=== PATIENT | male | born 2000 | race Caucasian/White ===

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

== ENCOUNTER 2022-04-19 11:24 | Emergency (ER) | payer MEDICAID, OTHER ==
[~2022-04-19] VITALS: Ht 177.8 cm; Wt 88.0 kg
[2022-04-19 11:28] VITALS: BP 109/67
--- NOTE | 2022-04-19 11:34 | NUR ---
22/m C/O LEFT KNEE PAIN ONSET 1 DAY AFTER PLAYING SOCCER. DENIES TRAUMA OR FALL. AAO4, AMBULATORY, NO BRUISING OR DEFORMITY NOTED. STATES PAIN DECREASED WITH IBUPROFEN. NKA PMH:DENIES
--- NOTE | 2022-04-19 11:47 | NUR ---
XR AT BEDSIDE
--- NOTE | 2022-04-19 12:48 | NUR ---
Patient discharged with v/s stable. Written and verbal after care instructions ABOUT ACUTE KNEE PAIN given and explained. Patient verbalized understanding. Ambulatory with steady gait. All questions addressed prior to discharge. Advised to follow up with PMD.
== END 2022-04-19 12:48 | disposition home or self-care (01) ==
LOC: MED 11:24
DX: M25.562 Pain in left knee (principal)
CPT/HCPCS: 73562; 99283; Q0092

== ENCOUNTER 2022-06-06 14:15 | Emergency (ER) | payer OTHER ==
[~2022-06-06] VITALS: Ht 175.3 cm; Wt 81.6 kg
[2022-06-06 14:37] VITALS: BP 107/65
--- NOTE | 2022-06-06 14:40 | NUR ---
PT AMBULATED TO BED 12
--- NOTE | 2022-06-06 14:40 | NUR ---
PT AMBULATED TO LOBBY
--- NOTE | 2022-06-06 14:41 | NUR ---
Patient ambulated with steady gait to bed 6.
--- NOTE | 2022-06-06 14:42 | NUR ---
COVID AND FLU SWAB COLLECTED
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
--- NOTE | 2022-06-06 14:56 | NUR ---
MATHIEU GONSALEZ AT BEDSIDE FOR EVALUATION
[2022-06-06] MEDS ORDERED: PROM118S5 PO (15:48)
[2022-06-06] MEDS ORDERED: IBUP-2213 PO (15:48)
--- NOTE | 2022-06-06 15:53 | NUR ---
Patient discharged with v/s stable. Written and verbal after care instructions FOR ACUTE BRONCHITIS given and explained. Patient alert, oriented and verbalized understanding of instructions. Ambulatory with steady gait. All questions addressed prior to discharge. ID band removed. Patient advised to follow up with PMD. Rx of IBUPROFEN AND PROMETHAZINE given. Opportunity to ask questions provided and answered.
== END 2022-06-06 15:53 | disposition home or self-care (01) ==
LOC: MED 14:15
DX: J20.9 Acute bronchitis, unspecified (principal); Z20.822 Contact with and (suspected) exposure to COVID-19
CPT/HCPCS: 71045; 99284

== ENCOUNTER 2022-07-01 09:51 | Emergency (ER) | payer OTHER ==
[~2022-07-01] VITALS: Ht 175.3 cm; Wt 90.7 kg
[~2022-07-01 09:51] MED LIST: IBUP-2213 PO; PROM118S5 PO
--- NOTE | 2022-07-01 10:12 | NUR ---
22 y/o male bib self, c/o chronic cough for 6-7 weeks, pt states he was seen here previously and was dx with bronchitis. pt was given rx of cough medication with no relief. states he was given rx of antibiotics from pcp from f/u with also no relief. states he wants an xray to see if his chest is getting worse. pmh: bronchitis nka med: antibiotics rx by pcp, cough medication rx by er
--- NOTE | 2022-07-01 10:12 | NUR ---
flu and covid swabbed at this time
[2022-07-01 10:14] VITALS: BP 110/58
--- NOTE | 2022-07-01 10:21 | NUR ---
PT AMBULATED TO BED 12
[2022-07-01] MEDS ORDERED: PROM118S5 PO (12:13)
[2022-07-01] MEDS ORDERED: ALBU0.0912 IH (12:13)
--- NOTE | 2022-07-01 12:31 | NUR ---
Patient discharged with v/s stable. Written and verbal after care instructions given and explained. Patient alert, oriented and verbalized understanding of instructions. Ambulatory with steady gait. All questions addressed prior to discharge. ID band removed. Patient advised to follow up with PMD. Rx of promethazine, albuterol (sent) given. Patient educated on indication of medication including possible reaction and side effects. Opportunity to ask questions provided and answered. copy of labs given
[2022-07-01 12:32] VITALS: BP 110/58
== END 2022-07-01 12:31 | disposition home or self-care (01) ==
LOC: MED 09:51
DX: R05.9 Cough, unspecified (principal); Z20.822 Contact with and (suspected) exposure to COVID-19
CPT/HCPCS: 99283

== ENCOUNTER 2022-11-27 14:30 | Emergency (ER) | payer OTHER ==
[~2022-11-27] VITALS: Ht 177.8 cm; Wt 68.0 kg
[~2022-11-27 14:30] MED LIST changes: +ALBU0.0912 IH
[2022-11-27 14:52] VITALS: BP 111/55
--- NOTE | 2022-11-27 14:59 | NUR ---
pt ambulatory to [facility] w steady gait.
--- NOTE | 2022-11-27 15:14 | NUR ---
Patient ambulated to bed 7.
--- NOTE | 2022-11-27 15:57 | NUR ---
Patient discharged with v/s stable. Written and verbal after care instructions given. Patient verbalized understanding. Ambulatory with steady gait. All questions addressed prior to discharge. Advised to follow up with PMD.
== END 2022-11-27 15:57 | disposition home or self-care (01) ==
LOC: MED 14:30
DX: K62.5 Hemorrhage of anus and rectum (principal); Z79.899 Other long term (current) drug therapy
CPT/HCPCS: 99281

== ENCOUNTER 2023-01-12 15:43 | Emergency (ER) | payer OTHER ==
[~2023-01-12] VITALS: Ht 177.8 cm; Wt 88.5 kg
[2023-01-12 17:08] VITALS: BP 121/79; PULSE 65; RESP 20; TEMP 98.9; O2SAT 96
[2023-01-12] MEDS ORDERED: TETRACAINE HCL/PF 0.5% OPTH 4 ML BTL OP ONE (19:20)
[2023-01-12] MEDS ORDERED: IBUP-1842 PO (19:32)
[2023-01-12] MEDS ORDERED: OFLOS LEFT EYE (19:32)
--- NOTE | 2023-01-12 19:35 | NUR ---
MATHIEU Gonzalez discharged patient.
== END 2023-01-12 19:35 | disposition home or self-care (01) ==
LOC: MED 15:43
DX: S01.132A Puncture wound without foreign body of left eyelid and periocular area, initial encounter (principal); W21.09XA Struck by other hit or thrown ball, initial encounter; Y93.89 Activity, other specified; Y92.89 Other specified places as the place of occurrence of the external cause; Y99.8 Other external cause status
CPT/HCPCS: 99284

== ENCOUNTER 2023-04-02 14:03 | Emergency (ER) | payer OTHER ==
[~2023-04-02] VITALS: Ht 177.8 cm; Wt 86.2 kg
[~2023-04-02 14:03] MED LIST changes: +IBUP-1842 PO; +OFLOS LEFT EYE
[2023-04-02 14:37] VITALS: BP 111/50; PULSE 67; RESP 14; TEMP 98.5; O2SAT 100
[2023-04-02] MEDS ORDERED: SALI1ADH TP (15:18)
== END 2023-04-02 15:29 | disposition home or self-care (01) ==
LOC: MED 14:03
DX: B07.0 Plantar wart (principal); Z79.899 Other long term (current) drug therapy
CPT/HCPCS: 99282

== ENCOUNTER 2023-05-13 23:36 | Inpatient (IN) | payer OTHER ==
[~2023-05-13] VITALS: Ht 177.8 cm; Wt 88.0 kg
[~2023-05-13 23:36] MED LIST changes: +SALI1ADH TP
[2023-05-13 23:39] VITALS: BP 82/65; PULSE 109; RESP 18; TEMP 98.2; O2SAT 97
[2023-05-14] MEDS ORDERED: DICYCLOMINE 20 MG/2 ML VIAL IM ONE (00:05)
[2023-05-14] MEDS ORDERED: NACL 0.9% 2,000 ML IV ONE (00:05)
[2023-05-14] MEDS ORDERED: ONDANSETRON 4 MG/2 ML VIAL IVP ONE (00:05)
[2023-05-14 00:28] LABS: BASOPHILS # (AUTO) 0.1 K/uL (0.00-0.22); BASOPHILS % (AUTO) 0.9 % (0.0-2.0); EOSINOPHILS # (AUTO) 0.1 K/uL (0-0.4); EOSINOPHILS % (AUTO) 0.5 % (0.0-4.0); HEMATOCRIT 47.9 % (36-52); HEMOGLOBIN 16.3 g/dL (12.0-18.0); LYMPHOCYTES # (AUTO) 0.2 K/uL (2.0-11.5); LYMPHOCYTES % (AUTO) 1.5 % (20.5-51.1); MEAN CORPUSCULAR HEMOGLOBIN 29 pg (27-31); MEAN CORPUSCULAR HGB CONC 34 g/dL (33-37); MEAN CORPUSCULAR VOLUME 86.2 fL (80-94); MONOCYTES # (AUTO) 0.5 K/uL (0.8-1.0); MONOCYTES % (AUTO) 3.2 % (1.7-9.3); NEUTROPHILS % (AUTO) 93.9 % (42.2-75.2); PLATELET COUNT (AUTO) 193 K/uL (140-450); RED BLOOD CELL COUNT(AUTO) 5.56 MIL/uL (4.20-6.10); RED CELL DISTRIBUTION WIDTH 13.3 % (11.6-13.7); WHITE BLOOD COUNT (AUTO) 14.9 K/uL (4.8-10.8)
[2023-05-14 00:41] LABS: ANION GAP 14.6 (8-16); CALCIUM 9.2 mg/dL (8.5-10.1); CARBON DIOXIDE 27.1 mmol/L (21-32); CREATININE 1.1 mg/dL (0.6-1.3); POTASSIUM 4.7 mmol/L (3.5-5.1)
[2023-05-14 00:47] LABS: ALBUMIN 4.9 g/dL (3.4-5.0); BILIRUBIN,DIRECT 0.2 mg/dL (0.0-0.3); TOTAL PROTEIN, SERUM 8.1 g/dL (6.4-8.2)
[2023-05-14] MEDS ORDERED: NACL 0.9% 1,000 ML IV ONE (02:25)
[2023-05-14 03:05] LABS: LACTIC ACID 1.2 mmol/L (0.4-2.0)
[2023-05-14] MEDS ORDERED: KETOROLAC 30 MG/ML VIAL IVP ONE (03:10)
[2023-05-14 03:29] LABS: FLU A ANTIGEN negative (NEGATIVE); FLU B ANTIGEN NEGATIVE (NEGATIVE)
[2023-05-14 04:04] LABS: APPEARANCE,URINE CLEAR (CLEAR); BILIRUBIN,URINE NEGATIVE (NEGATIVE); BLOOD, URINE NEGATIVE (NEGATIVE); COLOR,URINE YELLOW (YELLOW); LEUKOCYTE ESTERASE ,URINE NEGATIVE (NEGATIVE); NITRITE, URINE NEGATIVE (NEGATIVE); PROTEIN,URINE NEGATIVE (NEGATIVE); UGLUCOSE NEGATIVE (NEGATIVE); UROBILINOGEN,URINE 0.2 EU/dL (0.2 - 1)
[2023-05-14] MEDS ORDERED: metroNIDAZOLE 500 MG/NS PREMIX 100 ML IV ONE (04:55)
[2023-05-14] MEDS ORDERED: LEVOFLOXACIN 750 MG/D5W PREMIX 150 ML IV ONE (04:55)
[2023-05-14] MEDS ORDERED: ACETAMINOPHEN 325 MG TAB PO PRN (05:45)
[2023-05-14] MEDS ORDERED: LORazepam 2 MG/ML VIAL IVP PRN (05:45)
[2023-05-14] MEDS: LEVOFLOXACIN 750 MG/D5W PREMIX 150 ML IV SCH (05:45)
[2023-05-14] MEDS ORDERED: ONDANSETRON 4 MG/2 ML VIAL IVP PRN (05:45)
[2023-05-14] MEDS ORDERED: HYDROcodone/APAP 5/325 MG 1 TAB TAB PO PRN (05:45)
[2023-05-14] MEDS: NACL 0.9% 1,000 ML IV SCH ×2 (08:51→15:45)
[2023-05-14] MEDS: ENOXAPARIN 40 MG/0.4 ML SYR SUBQ SCH (10:47)
[2023-05-14 11:05] VITALS: BP 97/58; PULSE 65; RESP 18; TEMP 97.4; TEMP 98.3; O2SAT 100
[2023-05-14] MEDS: metroNIDAZOLE 500 MG/NS PREMIX 100 ML IV SCH ×2 (12:37→20:36)
[2023-05-14 16:00] VITALS: BP 93/59; PULSE 63; RESP 18; TEMP 97.9; O2SAT 100
[2023-05-14 20:00] VITALS: PULSE 65; RESP 18; TEMP 98.6
[2023-05-14] MEDS ORDERED: HYDRAGUARD CREAM TP ONE (21:58)
[2023-05-14 22:55] VITALS: BP 105/63; PULSE 63; RESP 18; TEMP 98.5; O2SAT 100
[2023-05-15] MEDS: NACL 0.9% 1,000 ML IV SCH ×3 (01:37→22:28)
[2023-05-15 04:00] VITALS: BP 107/65; PULSE 60; RESP 18; TEMP 98.8; O2SAT 99
[2023-05-15] MEDS: metroNIDAZOLE 500 MG/NS PREMIX 100 ML IV SCH ×3 (04:01→22:30)
[2023-05-15 05:41] LABS: BASOPHILS % (AUTO) 0.5 % (0.0-2.0); EOSINOPHILS # (AUTO) 0.2 K/uL (0-0.4); EOSINOPHILS % (AUTO) 4.1 % (0.0-4.0); HEMATOCRIT 36.1 % (36-52); HEMOGLOBIN 12.5 g/dL (12.0-18.0); LYMPHOCYTES # (AUTO) 1.2 K/uL (2.0-11.5); LYMPHOCYTES % (AUTO) 27.2 % (20.5-51.1); MEAN CORPUSCULAR HEMOGLOBIN 30 pg (27-31); MEAN CORPUSCULAR HGB CONC 35 g/dL (33-37); MEAN CORPUSCULAR VOLUME 85.8 fL (80-94); MONOCYTES # (AUTO) 0.6 K/uL (0.8-1.0); MONOCYTES % (AUTO) 13.2 % (1.7-9.3); NEUTROPHILS # (AUTO) 2.4 K/uL (1.8-7.7); PLATELET COUNT (AUTO) 144 K/uL (140-450); RED BLOOD CELL COUNT(AUTO) 4.21 MIL/uL (4.20-6.10); RED CELL DISTRIBUTION WIDTH 12.9 % (11.6-13.7); WHITE BLOOD COUNT (AUTO) 4.4 K/uL (4.8-10.8)
[2023-05-15] MEDS: LEVOFLOXACIN 750 MG/D5W PREMIX 150 ML IV SCH (05:43)
[2023-05-15] MEDS ORDERED: HYDRAGUARD CREAM TP PRN (05:45)
[2023-05-15 06:15] LABS: ALBUMIN 3.2 g/dL (3.4-5.0); ANION GAP 12.7 (8-16); CALCIUM 7.9 mg/dL (8.5-10.1); CARBON DIOXIDE 25.5 mmol/L (21-32); CREATININE 0.9 mg/dL (0.6-1.3); MAGNESIUM 1.7 mg/dL (1.8-2.4); POTASSIUM 4.2 mmol/L (3.5-5.1); TOTAL BILIRUBIN 0.5 mg/dL (0.0-1.0); TOTAL PROTEIN, SERUM 5.6 g/dL (6.4-8.2)
[2023-05-15 08:00] VITALS: BP 97/65; PULSE 64; PULSE 65; RESP 18; TEMP 98; TEMP 98.6; O2SAT 97
[2023-05-15] MEDS: ENOXAPARIN 40 MG/0.4 ML SYR SUBQ SCH (09:35)
[2023-05-15 12:55] VITALS: BP 97/65; PULSE 65; RESP 18; TEMP 98; O2SAT 97
[2023-05-15 16:00] VITALS: BP 105/59; PULSE 64; RESP 18; TEMP 98.3; O2SAT 99
[2023-05-15 20:00] VITALS: PULSE 62; RESP 18; TEMP 98.8
[2023-05-16] VITALS: BP 102/66; PULSE 68; RESP 18; TEMP 98.5; O2SAT 99
[2023-05-16] MEDS: LEVOFLOXACIN 750 MG/D5W PREMIX 150 ML IV SCH (05:10)
[2023-05-16] MEDS: metroNIDAZOLE 500 MG/NS PREMIX 100 ML IV SCH ×2 (07:01→14:16)
[2023-05-16] MEDS: NACL 0.9% 1,000 ML IV SCH ×2 (07:45→13:55)
[2023-05-16 08:00] VITALS: BP 90/52; PULSE 17; PULSE 55; RESP 16; RESP 17; TEMP 97.7; O2SAT 99
[2023-05-16] MEDS: ENOXAPARIN 40 MG/0.4 ML SYR SUBQ SCH (09:29)
[2023-05-16 14:07] LABS: BASOPHILS % (AUTO) 0.5 % (0.0-2.0); EOSINOPHILS # (AUTO) 0.1 K/uL (0-0.4); EOSINOPHILS % (AUTO) 1.6 % (0.0-4.0); HEMATOCRIT 39.7 % (36-52); HEMOGLOBIN 13.7 g/dL (12.0-18.0); LYMPHOCYTES # (AUTO) 1.2 K/uL (2.0-11.5); LYMPHOCYTES % (AUTO) 33.7 % (20.5-51.1); MEAN CORPUSCULAR HEMOGLOBIN 29 pg (27-31); MEAN CORPUSCULAR HGB CONC 35 g/dL (33-37); MEAN CORPUSCULAR VOLUME 84.8 fL (80-94); MONOCYTES # (AUTO) 0.5 K/uL (0.8-1.0); MONOCYTES % (AUTO) 13.1 % (1.7-9.3); NEUTROPHILS # (AUTO) 1.8 K/uL (1.8-7.7); NEUTROPHILS % (AUTO) 51.1 % (42.2-75.2); PLATELET COUNT (AUTO) 171 K/uL (140-450); RED BLOOD CELL COUNT(AUTO) 4.69 MIL/uL (4.20-6.10); RED CELL DISTRIBUTION WIDTH 13.4 % (11.6-13.7); WHITE BLOOD COUNT (AUTO) 3.6 K/uL (4.8-10.8)
[2023-05-16 14:15] LABS: ANION GAP 9.3 (8-16); CALCIUM 8.4 mg/dL (8.5-10.1); CARBON DIOXIDE 29.5 mmol/L (21-32); POTASSIUM 3.8 mmol/L (3.5-5.1)
[2023-05-16] MEDS ORDERED: AMOX1TER12 PO (15:42)
[2023-05-16 16:00] VITALS: BP 102/68; PULSE 56; RESP 17; TEMP 97.7; O2SAT 100
[2023-05-16 17:26] VITALS: BP 102/68; PULSE 56; RESP 17; TEMP 97.7
== END 2023-05-16 18:26 | disposition home or self-care (01) | DRG 248 ==
LOC: MED 23:36 → MMU 05-14 05:49 → MTU 05-14 05:49 → OBSVTOIN 05-15 13:15
PROVIDERS: ADMIT Student in an Organized Health Care Education/Training Program; ATTEND Student in an Organized Health Care Education/Training Program
DX: A04.9 Bacterial intestinal infection, unspecified (principal); R65.10 Systemic inflammatory response syndrome (SIRS) of non-infectious origin without acute organ dysfunction; I95.9 Hypotension, unspecified; K52.9 Noninfective gastroenteritis and colitis, unspecified; E86.1 Hypovolemia; Z20.822 Contact with and (suspected) exposure to COVID-19
CPT/HCPCS: 96361; 96365; 96367; 96372; 96375; 99285; G0378; 36415; 80048; 80053; 80076; 81003; 83605; 83690; 83735; 85025; 87040; 87070; 87081; J0500; J1650; J1885; J1956; J2405; J3490